=== PATIENT | female | born 1980 | race African-American/Black ===

== ENCOUNTER 2018-08-21 12:13 | Emergency (ER) | payer BC ==
[~2018-08-21] VITALS: Ht 162.6 cm; Wt 94.8 kg
--- OUTSIDE RECORDS SUMMARY | 2018-08-21 12:15 | XMS REPORT | Clinical Summary ---
Author Author [facility] Address Unknown Phone Unavailable Care Team Providers Care Change Coordinator Name Role Phone Richa Billings MD PCP Allergies No Known Allergies Medications Not on file Active Problems Problem Noted Date Contusion of right knee 05/15/2016 Encounters Care Team Description Date Type Specialty Shashi France MD 02/20/2018 [facility] Sleep Medicine Encounter Nel Brady Obstructive sleep apnea syndrome (Primary Dx) 02/20/2018 Transcribe Sleep Medicine Orders after 08/20/2017 Social History Date Tobacco Use Types Packs/Day Years Used Never Smoker Alcohol Use Drinks/Week oz/Week Comments Yes socially Sex Assigned at Date Recorded Not on file Industry Job Start Date Occupation Not on file Not on file Not on file Travel End Travel History Travel Start No recent travel history available. Last Filed Vital Signs Not on file Plan of Treatment Health Maintenance Due Date Last Done Comments CERVICAL CANCER SCREENING 02/02/2000 INFLUENZA VACCINE 03/08/2018 Procedures Comments Procedure Name Priority Date/Time Associated Diagnosis GENERAL SLEEP STUDY Routine 02/27/2018 Obstructive sleep apnea 9:16 AM CDT syndrome after 08/20/2017 Results * General sleep study (02/27/2018 9:16 AM CDT) Narrative Performed At after 08/20/2017 Insurance Payer Benefit Subscriber ID Type Phone Address Plan / Group BCBS BCBS OUT xxxxxxxxxxxx PPO OF STATE (Home) [place] [address] Advance Directives Patient has advance care planning documents on file. For more information, navjot palomino contact: Viral Fair [address] [place] [phone]
--- OUTSIDE RECORDS SUMMARY | 2018-08-21 12:15 | XMS REPORT | Continuity of Care Document ---
Author Author [email or web address] Organization Interface Address Unknown Phone Unavailable Problems Problem Status Onset Date Classification Date Reported Comments Source R29.898 - OTH SYMPTOMS AND SIGNS INVOLVI Active 03/02/2017 [facility] [place] K[facility]IN Active [facility] Medications Medication Details Route Status Patient Instructions Ordering Provider Order Date Source Allergies, Adverse Reactions, Alerts Substance Category Reaction Severity Reaction type Status Date Reported Comments Source Immunizations Immunization Date Given Site Status Last Updated Comments Source Results Order Name Results Value Reference Range Date Interpretation Comments Source Spine lumbar wo contrast MRI Spine lumbar wo contrast MRI EXAM: MRI LUMBAR SPINE WITHOUT CONTRAST DATE: 03/07/2017 2:41 PM CDT . ORDERING PHYSICIAN: Gary Machado MD CLINICAL INDICATION: - R29.898 Other symptoms and signs involving the musculoskeletal system; TECHNIQUE: Multiplanar, multisequence MRI lumbar spine without IV contrast COMPARISON: Unavailable FINDINGS: For the purposes of enumeration, the lowest well formed intervertebral disc was counted as L5-S1 on this exam. INTRASPINAL CONTENTS/CONUS: The conus terminates at L1-L2. No definite dural based lesion. VERTEBRAE: The vertebrae are normal in height and alignment. No focal suspicious bone marrow signal abnormality. PARASPINAL SOFT TISSUES: No edema or definite masses. No aortic aneurysm. DISC SPACES, SPINAL CANAL, AND NEURAL FORAMINA: T12-L1. Intervertebral disc height and signal are maintained. Posterior elements are normal. There is no stenosis. L1-L2. Intervertebral disc height and signal are maintained. Posterior elements are normal. There is no stenosis. L2-L3. Intervertebral disc height and signal are maintained. Posterior elements are normal. There is no stenosis. L3-L4. Intervertebral disc height and signal are maintained. Posterior elements are normal. There is no stenosis. L4-L5. Intervertebral disc height and signal are maintained. Posterior elements are normal. There is no stenosis. L5-S1. Disc height is maintained. There is a 4 mm left subarticular zone disc protrusion with annular fissuring. Facets are unremarkable. Central canal measures 12 mm. Left lateral recess is narrowed with disc dorsally displacing the left S1 nerve root. Neural foramina are patent. IMPRESSION: Left L5-S1 subarticular zone disc protrusion displacing the left descending S1 nerve root 03/07/2017 - - Read by: Darien Coon MD Dictated Date/time: 03/07/17 17:14 Electronically Signed by: Darien Coon MD 03/07/17 17:16 FINAL REPORT MAGY Alonso Vital Signs Vital Sign Value Date Comments Source Encounters Location Location Details Encounter Type Encounter Number Reason For Visit Attending Provider ADM Date DC Date Status Source [facility] [id number] Jitendra Vance 06/09/2016 07/09/2016 [facility] [id number] Jitendra Vance 07/09/2016 08/08/2016 [facility] Patients [id number] Jitendra Vance 08/16/2016 09/15/2016 [facility] [id number] Gary Machado III 03/07/2017 03/08/2017 [facility] Alonso Procedures Procedure Code Date Perfomer Comments Source
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
--- OUTSIDE RECORDS SUMMARY | 2018-08-21 12:15 | XMS REPORT | Summary of Care ---
Author Author [facility] Address Unknown Phone Unavailable Encounter HQ Encntr_alias(FIN) [id number] Date(s): 08/16/16 - 09/14/16 [facility] [address] [facility], [address] [place] [address]- [place] [phone] Discharge Disposition: Home or Self Care Attending [...]
--- OUTSIDE RECORDS SUMMARY | 2018-08-21 12:16 | XMS REPORT | Summary of Care ---
Author ANTONIO Torres M.D. Unknown Address Unknown Phone Unavailable Care Team Providers Care Broiler Supervisor Name Role Phone ANTONIO OJEDA M.D. 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 Start : 02-Nov-2016 Active Cyclobenzaprine HCl - 5 MG Oral Tablet TAKE 1 TABLET TWICE DAILY PRN * Quantity: 20 Refills: 0 ANTONIO OJEDA M.D. Start : 02-Nov-2016 Active Vimovo 500-20 MG Oral Tablet Delayed Release TAKE 1 TABLET BY MOUTH TWICE DAILY TAKE AT LEAST 30 MINUTES BEFORE MEALS. * Quantity: 60 Refills: 0 ANTONIO OJEDA M.D. Start : 17-May-2017 Active Pennsaid 2 % Transdermal Solution APPLY TWO PUMPS TOPICALLY, 2 TIMES DAILY * Quantity: 112 Refills: 0 ANTONIO OJEDA M.D. Start : 09-Jun-2017 Active Cyclobenzaprine HCl - 10 MG Oral Tablet TAKE 1 TABLET TWICE DAILY PRN * Quantity: 20 Refills: 0 ANTONIO OJEDA M.D. Start : 28-Feb-2017 Active Cyclobenzaprine HCl - 5 MG Oral Tablet TAKE 1 TABLET 3 TIMES DAILY NEEDED. * Quantity: 30 Refills: 0 ANTONIO OJEDA M.D. Start : 21-Apr-2017 Active Allergies and Adverse Reactions Name Dates Details Allergy history not documented Status: Procedures Procedure Dates Details Procedures not documented Immunization Name Dates Details Immunizations not documented Social History Name Dates Details Unknown if ever smoked Vital Signs Date Test Result Details No Known Vitals to report Results Date Description Value Details Results not documented Plan of Care Name Dates Details Planned Observations [U] MRI SPINE LUMBAR WO CONTRAST [id number] On: 01-Mar-2017 Intent Planned Goals not documented Planned Encounters Physical Therapy Referral Appointment; ANTONIO OJEDA M.D. On: 02-Feb-2018 13:30 Interventions Provided Medication Changes* Cyclobenzaprine HCl - 10 MG Oral Tablet - Start * Cyclobenzaprine HCl - 5 MG Oral Tablet - Start * Cyclobenzaprine HCl - 5 MG Oral Tablet - Start * Duexis 800-26.6 MG Oral Tablet - Start Labs/Procedures/Imaging* [U] XRAY KNEE 3 VWS RIGHT [id number]; Done: 02 Sep 2016 Plan* Patient Education/Instructions: * Patient Education Provided * Reassurance * Counseling Provided. * MRI report reviewed and finding discussed with patient and family. * DME Orders: We have ordered an EMG to evaluate if whether this pain is coming from another source. * Follow Up: * Return to the clinic:after imaging study completed or as needed. Instructions Name Dates Details Instructions not documented Encounters Appointment; ANTONIO OJEDA M.D. Encounter Diagnosis: Problem not documented On: 02-Sep-2016 13:00
--- OUTSIDE RECORDS SUMMARY | 2018-08-21 12:16 | XMS REPORT ---
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 PERCENT (BEAKER) (test qhlr=304) 54 % LYMPHOCYTES RELATIVE PERCENT (BEAKER) (test pxqn=451) 35 % MONOCYTES RELATIVE PERCENT (BEAKER) (test nmff=210) 7 % EOSINOPHILS RELATIVE PERCENT (BEAKER) (test ikgn=064) 3 % BASOPHILS RELATIVE PERCENT (BEAKER) (test pyjj=502) 1 % NEUTROPHILS ABSOLUTE COUNT (BEAKER) (test dtgf=704) 5.65 K/ L 1.56-6.13 LYMPHOCYTES ABSOLUTE COUNT (BEAKER) (test jsfo=339) 3.59 K/ L 1.18-3.74 MONOCYTES ABSOLUTE COUNT (BEAKER) (test njqk=699) 0.74 K/ L 0.24-0.36 EOSINOPHILS ABSOLUTE COUNT (BEAKER) (test nhwb=931) 0.28 K/ L 0.04-0.36 BASOPHILS ABSOLUTE COUNT (BEAKER) (test evmn=128) 0.08 K/ L 0.01-0.08 IMMATURE GRANULOCYTES-RELATIVE PERCENT (BEAKER) (test taql=5122) 1 % 0-1 CT, BRAIN/STROKE [id number] 13:14:00Reason for exam:->CHEST PAINReason for exam:->EXTREMITY WEAKNESSReason for exam:->NUMBNESSFINAL REPORT CT head without contrast 07/06/2017 1:12 PM CLINICAL HISTORY: Focal neuro deficit, new, fixed or worsening, <6 hoursCHEST PAINEXTREMITY WEAKNESSNUMBNESS TECHNIQUE: Axial noncontrast CT images through the head were obtained. This examination was performed according to our departmental dose optimization program, which includes automated exposure control, adjustment of the mA and/or kV according to patient size, and/or use of iterated reconstruction technique. COMPARISON: 03/09/2017 FINDINGS: There is no hemorrhage, extra-axial collection, mass, hydrocephalus, or midline shift. There is no CT evidence for cerebral infarction. The visualized paranasal sinuses and mastoid air cells are well aerated. There is chronic appearing deformity in the s uperior left nasal bone. The skull is otherwise intact. IMPRESSION: No intracran ial hemorrhage or mass effect. If concern for acute pathology persists, further evaluation with MRI is recommended. Findings were discussed with the stroke neur ology housesta on 07/06/2017 at 1304. Signed: Peter Meneses Date/Time: 07/06/2017 13:14:16 Reading Location: [facility] Read ing Room BRAIN WOCLINICAL INDICATION: S09.90XD Unspecified injury of head, subsequent encounterMODALITY: Siemens SnackFeed CT (Iterative dose reduction techniques are utilized.)TECHNIQUE: Helical imaging of the brain is performed without IV contrast.Computed Tomography Dose Index: 42.89 mGy.IMPRESSION:Negative brain CT without contrast. No sequelae of trauma are identified.FINDINGS:COMPARISON: NoneThere are no acute infarcts, hemorrhages, hydrocephalus or extra-axial fluid collections or hematomas. There are no intracranial or extracranial sequelae of trauma identified.There are no intracranial mass lesions. The ham/white interface is normal. No focal edema or shift of midline structures is seen.There are no significant white matter abnormalities.Skull base structures are normal. The region of the sella and parasellar structures is normal. Internal auditory canals are symmetric.The brainstem, midbrain and cerebellum appear normal.The calvarium is intact.The extracranial soft tissues are unremarkable.PQRS 436: [id number] (For official use on ly.)
--- OUTSIDE RECORDS SUMMARY | 2018-08-21 12:16 | XMS REPORT | Summary of Care ---
Author Author [facility] [place] Organization [facility] [place] Address Unknown Phone Unavailable Encounter HQ Encntr_alias(FIN) [id number] Date(s): 03/07/17 - 03/07/17 [facility] [place] [address] [place] [phone] Discharge Disposition: Home or Self Care Attending Physician: Gary Murrieta MD Vital Signs No data available for [...]
--- OUTSIDE RECORDS SUMMARY | 2018-08-21 12:16 | XMS REPORT ---
Author Author Admin, [place] Organization [facility] Address [address] [place], [place] [id number] Phone Allergies, Adverse Reactions, Alerts Allergy Name Reaction Description Start Date Severity Status Provider Allergies Unknown Conditions or Problems Problem Name Problem Code Onset Date Status Entry Date Provider Comment Standard Description Annotate Problems Unknown Medication List Medication Instructions Start Date Stop Date Generic Name NDC Status Provider Patient Instruction Drug Treatment Unknown - unknown
--- NOTE | 2018-08-21 14:02 | Diagnostic Imaging Report ---
History: Fall, pain Comparison studies:None Technique: Axial images were obtained to the vertex and maxillofacial region. Coronal and sagittal images reconstructed from the axial data. Intravenous contrast: None Dose modulation, iterative reconstruction, and/or weight based adjustment of the mA/kV was utilized to reduce the radiation dose to as low as reasonably achievable. Findings: Scalp/skull: No abnormalities. No fractures, blastic or lytic lesions. Extra-axial spaces: No masses. No fluid collections. Brain sulci: Appropriate for age. Ventricles: Normal in size and configuration. No hydrocephalus. Parenchyma: No abnormal densities. No masses, hemorrhage, acute or chronic cortical vascular insults. Sellar/suprasellar region: No abnormalities Craniocervical junction: Patent foramen magnum. No Chiari one malformation. Maxillofacial CT: Soft tissues: No abnormalities. Bones: No fractures or bone abnormalities. Orbits: Globes: Intact Extra or intraconal abnormalities: None. Paranasal sinuses: Mild nonspecific mucosal thickening at the left anterior maxillary sinus. The remaining paranasal sinuses are clear. Incidental findings: None Impression: Head CT: 1. Normal examination Maxillofacial CT: 1. No acute facial abnormality Signed by: DR Denys Benavides M.D. on 08/21/2018 1:58 PM
[2018-08-21 14:10] VITALS: BP 147/99
== END 2018-08-21 14:25 | disposition home or self-care (01) ==
LOC: FSED 12:13
DX: S06.0X0A Concussion without loss of consciousness, initial encounter (principal); W01.0XXA Fall on same level from slipping, tripping and stumbling without subsequent striking against object, initial encounter; Y93.E1 Activity, personal bathing and showering; Y92.002 Bathroom of unspecified non-institutional (private) residence as the place of occurrence of the external cause; I10 Essential (primary) hypertension; E78.00 Pure hypercholesterolemia, unspecified
CPT/HCPCS: 70450; 70486; 81025; 99283

== ENCOUNTER 2018-12-14 18:52 | Emergency (ER) | payer BC ==
[~2018-12-14] VITALS: Ht 162.6 cm; Wt 94.8 kg
--- OUTSIDE RECORDS SUMMARY | 2018-12-14 18:55 | XMS REPORT | Clinical Summary ---
Author Author [facility] Address Unknown Phone Unavailable Care Team Providers Care Stem Cleaning Machine Feeder Name Role Phone Richa Billings PCP Unavailable Allergies Comments Active Allergy Reactions Severity Noted Date Aspirin Swelling 10/27/2017 Beef Containing Products Swelling High 05/10/2013 Chicken Derived Swelling High 05/10/2013 [place] (Cucumis Swelling High 03/09/2017 Sativus) Pork/Porcine Containing Swelling High 05/10/2013 Products [place] Swelling High 03/09/2017 Medications End Date Status [...] 20 doses. Max Daily Amount: 200 mg Active desloratadine (CLARINEX) Take 5 mg by [...] 3 d then 1 po/d for 3d.. Active albuterol (ACCUNEB) 1.25 Take 3 mLs 360 mL 1 mg/3 mL nebulizer (1.25 mg 8 solution total) by nebulization every 6 (six) hours as needed. 10/27/2018 albuterol HFA (VENTOLIN Inhale 2 1 Inhaler 0 HFA) 90 mcg/actuation puffs by 8 inhaler mouth via inhaler every 4 (four) hours as needed for Wheezing. 11/04/2018 budesonide-formoterol Inhale 2 1 Inhaler 1 (SYMBICORT) 80-4.5 puffs by 8 mcg/actuation inhaler mouth via inhaler 2 (two) times daily. Active Problems Problem Noted Date Hypoxemia 11/02/2017 Mild intermittent asthma with acute exacerbation 10/31/2017 Obesity (BMI 30-39.9) 10/31/2017 Rhinovirus infection 10/31/2017 Hypokalemia 10/31/2017 Elevated blood pressure reading 10/31/2017 Family History Medical History Relation Name Comments [...] Signs Not on file Plan of Treatment Not on file Results Not on fileafter 12/13/2017 Insurance Payer Benefit Subscriber ID Type Phone Address Plan / Group BLUE CROSS/BLUE SHIELD BCBS OS xxxxxxxxxxxx PPO [phone] [address] POS/PPO/[place] [address] O Advance Directives For more information, please contact: [facility] [address] [place] [address] Date Inactivated Comments Code Status Date Activated 11/04/2017 6:46 PM Full Code 10/31/2017 2:44 PM This code status was determined by: Patient
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
== END 2018-12-14 21:06 | disposition home or self-care (01) ==
LOC: FSED 18:52
DX: R50.9 Fever, unspecified (principal); R05 Cough; H66.003 Acute suppurative otitis media without spontaneous rupture of ear drum, bilateral
CPT/HCPCS: 71046; 99283

== ENCOUNTER 2019-01-01 10:48 | Emergency (ER) | payer BC ==
[~2019-01-01] VITALS: Ht 162.6 cm; Wt 90.7 kg
[2019-01-01] MEDS ORDERED: ALBUTEROL/IPRATROPIUM 3 ML NEB NEB ONE (11:30)
[2019-01-01] MEDS ORDERED: PREDNISONE 20 MG TAB PO ONE (11:30)
[2019-01-01] MEDS ORDERED: PREDNISONE 20 MG TAB ONE ×2 (11:45→11:46)
[2019-01-01] MEDS ORDERED: ALBUTEROL/IPRATROPIUM 3 ML NEB ONE (11:46)
--- NOTE | 2019-01-01 13:09 | Diagnostic Imaging Report ---
EXAMINATION: CXR 2 VIEW - HOPD INDICATION: Chest pain. Fever. COMPARISON: Chest x-ray 12/14/2018 FINDINGS: TUBES and LINES: None. LUNGS: Lungs are well inflated. Bilateral peribronchial cuffing. There is no evidence of pneumonia or pulmonary edema. PLEURA: No pleural effusion or pneumothorax. HEART AND MEDIASTINUM: The cardiomediastinal silhouette is unremarkable. BONES AND SOFT TISSUES: No acute osseous lesion. Soft tissues are unremarkable. UPPER ABDOMEN: No free air under the diaphragm. IMPRESSION: Bilateral peribronchial cuffing, which could represent viral etiology or reactive airway disease. Signed by: Dr. Zak Clark M.D. on 01/01/2019 1:06 PM
[2019-01-01] MEDS ORDERED: DOXYCYCLINE MO100 MG PO (13:39)
[2019-01-01] MEDS ORDERED: ALBUTEROL0.63 MG/3 INH (13:40)
[2019-01-01] MEDS ORDERED: PREDNISONE20 MG PO (13:42)
== END 2019-01-01 13:53 | disposition home or self-care (01) ==
LOC: FSED 10:48
DX: J20.9 Acute bronchitis, unspecified (principal); J45.41 Moderate persistent asthma with (acute) exacerbation; J98.01 Acute bronchospasm; I10 Essential (primary) hypertension; Z79.82 Long term (current) use of aspirin; R00.0 Tachycardia, unspecified; F98.8 Other specified behavioral and emotional disorders with onset usually occurring in childhood and adolescence; G62.9 Polyneuropathy, unspecified
CPT/HCPCS: 71046; 87400; 99283; J7512

== ENCOUNTER 2019-10-23 19:49 | Emergency (ER) | payer BC ==
[~2019-10-23] VITALS: Ht 162.6 cm; Wt 94.8 kg
[~2019-10-23 19:49] MED LIST: ALBUTEROL0.63 MG/3 INH; DOXYCYCLINE MO100 MG PO; PREDNISONE20 MG PO
[2019-10-23] MEDS ORDERED: HYDROCODONE/APAP 5MG-325MG TAB PO ONE (20:45)
[2019-10-23] MEDS ORDERED: CYCLOBENZAPRINE HCL 10 MG TAB PO ONE (20:45)
[2019-10-23] MEDS ORDERED: IBUPROFEN 400 MG TAB PO ONE (20:45)
[2019-10-23] MEDS ORDERED: IBUPROFEN 400 MG TAB ONE (21:11)
[2019-10-23 21:25] LABS: BASOPHILS # (AUTO) 0.1 (0.0-0.1); BASOPHILS % 0.6 % (0.0-1.0); EOSINOPHILS # (AUTO) 0.3 (0.0-0.4); EOSINOPHILS % 2.2 % (0.0-6.0); HEMATOCRIT 42.6 % (34.2-44.1); HEMOGLOBIN 14.3 g/dL (12.0-16.0); LYMPHOCYTES # (AUTO) 3.8 (1.0-3.2); LYMPHOCYTES % 31.8 % (18.0-39.1); MEAN CORPUSCULAR HEMOGLOBIN 29.4 pg (28-32); MEAN CORPUSCULAR HGB CONC 33.6 g/dL (31-35); MEAN CORPUSCULAR VOLUME 87.5 fL (81-99); MONOCYTES # (AUTO) 0.8 (0.2-0.8); MONOCYTES % 6.5 % (4.4-11.3); NEUTROPHILS % 58.6 % (38.7-80.0); PLATELET COUNT 403 x10e3/uL (140-360); RED BLOOD COUNT 4.87 x10e6/uL (3.6-5.1); RED CELL DISTRIBUTION WIDTH 13.2 % (11.7-14.4)
[2019-10-23 21:33] LABS: INR 0.84; PARTIAL THROMBOPLASTIN TIME 24.5 seconds (23.8-35.5)
[2019-10-23 21:42] LABS: ALANINE AMINOTRANSFERASE 15 IU/L (0-55); ALBUMIN 3.9 g/dL (3.5-5.0); ALKALINE PHOSPHATASE 104 IU/L (40-150); ANION GAP 10.8 mmol/L (8-16); BLOOD UREA NITROGEN 14 mg/dL (7-26); BUN/CREATININE RATIO 15 (6-25); CARBON DIOXIDE 24 mmol/L (22-29); CHLORIDE 107 mmol/L (98-107); CREATININE, SERUM 0.94 mg/dL (0.57-1.11); EST GLOMERULAR FILTRATION RATE > 60 ML/MIN (60-); GLUCOSE 85 mg/dL (74-118); POTASSIUM 3.8 mmol/L (3.5-5.1); SODIUM 138 mmol/L (136-145)
--- NOTE | 2019-10-23 21:50 | NUR ---
INSECTICIDE SUPERVISOR CALLED FOR TAXI VOUCHER.
[2019-10-23] MEDS ORDERED: SODIUM CHLORIDE 0.9% 50ML 50 ML ONE (22:10)
[2019-10-23] MEDS ORDERED: IOPAMIDOL 370 MG/ML 200 ML INFUS..BTL INJ ONE (22:10)
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
--- NOTE | 2019-10-23 23:34 | Diagnostic Imaging Report ---
ANKLE 3 + VIEWS RIGHT - 3 views HISTORY: Pain COMPARISON: None available. FINDINGS: Bones: No acute displaced fracture. Osseous alignment is within normal limits. Tiny plantar calcaneal enthesophyte. Joints: The joint spaces are well-maintained. Soft tissues: The soft tissues appear unremarkable. IMPRESSION: No acute radiographic abnormality. Signed by: Dr. Lana Ivy M.D. on 10/23/2019 11:30 PM
[2019-10-23 23:55] LABS: BILIRUBIN,URINE NEGATIVE (NEGATIVE); CLARITY,URINE CLOUDY (CLEAR); COLOR,URINE YELLOW (YELLOW); KETONES,URINE NEGATIVE (NEGATIVE); LEUKOCYTE ESTERASE ,URINE NEGATIVE (NEGATIVE); NITRITE,URINE NEGATIVE (NEGATIVE); PROTEIN,URINE DIPSTICK NEGATIVE (NEGATIVE); URINE UROBILINOGEN 0.2 mg/dL (0.2 - 1)
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
[2019-10-24 00:11] LABS: BACTERIA,URINE MANY /HPF; EPITHELIAL CELLS,URINE MANY /LPF; RBC,URINE 0-5 /HPF (0-5); WBC,URINE (MAN) 0-5 /HPF (0-5)
== END 2019-10-24 00:15 | disposition home or self-care (01) ==
LOC: ER 19:49
DX: S20.211A Contusion of right front wall of thorax, initial encounter (principal); S30.1XXA Contusion of abdominal wall, initial encounter; S80.02XA Contusion of left knee, initial encounter; S80.01XA Contusion of right knee, initial encounter; S90.02XA Contusion of left ankle, initial encounter; S90.01XA Contusion of right ankle, initial encounter; V43.52XA Car driver injured in collision with other type car in traffic accident, initial encounter; Y92.488 Other paved roadways as the place of occurrence of the external cause; I10 Essential (primary) hypertension; E78.5 Hyperlipidemia, unspecified; J45.909 Unspecified asthma, uncomplicated
CPT/HCPCS: 36415; 70450; 71260; 72125; 73560; 73610; 74177; 80053; 81001; 85025; 85610; 85730; 93005; 99284; Q9967

== ENCOUNTER 2021-06-08 00:12 | Emergency (ER) | payer BC ==
[~2021-06-08] VITALS: Ht 162.6 cm; Wt 94.8 kg
[2021-06-08] MEDS ORDERED: ACETAMINOPHEN-1 EAC4 PO (01:24)
[2021-06-08] MEDS ORDERED: KETOROLAC TROMETHAMINE 60 MG/2 ML VIAL IM ONE (01:30)
== END 2021-06-08 01:47 | disposition home or self-care (01) ==
LOC: ER 00:26
DX: S63.501A Unspecified sprain of right wrist, initial encounter (principal); X50.0XXA Overexertion from strenuous movement or load, initial encounter; I10 Essential (primary) hypertension; E78.5 Hyperlipidemia, unspecified; J45.909 Unspecified asthma, uncomplicated; E06.3 Autoimmune thyroiditis
CPT/HCPCS: 73110; 99283; J1885

== ENCOUNTER 2024-07-16 17:59 | Emergency (ER) | payer BC ==
[~2024-07-16] VITALS: Ht 162.6 cm; Wt 106.7 kg
[~2024-07-16 17:59] MED LIST changes: +ACETAMINOPHEN-1 EAC4 PO
[2024-07-16 18:04] VITALS: PULSE 104; RESP 22; TEMP 97.8
[2024-07-16] MEDS ORDERED: METOPROLOL SUCC50 MG PO (18:12)
[2024-07-16] MEDS ORDERED: FLONASE ALLERG9.9 ML INH (18:12)
[2024-07-16] MEDS ORDERED: SINGULAIR10 MG PO (18:12)
[2024-07-16] MEDS ORDERED: LEXAPRO10 MG PO (18:12)
[2024-07-16] MEDS ORDERED: ALBUTEROL/IPRATROPIUM 3 ML NEB ONE (18:20)
[2024-07-16] MEDS: ALBUTEROL/IPRATROPIUM 3 ML NEB NEB ONE (18:27)
[2024-07-16] MEDS: PREDNISONE 20 MG TAB PO ONE (18:38)
[2024-07-16] MEDS ORDERED: PREDNISONE20 MG PO (19:41)
[2024-07-16] MEDS ORDERED: CORICIDIN HBP1 EAC3 PO (19:42)
[2024-07-16] MEDS ORDERED: AMOXICILLIN500 MG PO (19:43)
[2024-07-16] MEDS ORDERED: AMOXICILLIN/CLAVULANATE K 875 MG TAB ONE (19:44)
[2024-07-16] MEDS: AMOXICILLIN/CLAVULANATE K 875 MG TAB PO STA (20:05)
[2024-07-16 20:10] VITALS: BP 121/68; PULSE 71; RESP 17; TEMP 98.3; O2SAT 98
== END 2024-07-16 20:00 | disposition home or self-care (01) ==
LOC: FSED 18:04
DX: R06.00 Dyspnea, unspecified (principal); J45.901 Unspecified asthma with (acute) exacerbation; J33.9 Nasal polyp, unspecified; R09.81 Nasal congestion; R05.9 Cough, unspecified; I10 Essential (primary) hypertension; E78.5 Hyperlipidemia, unspecified
CPT/HCPCS: 71046; 99283; J7512